=== PATIENT | female | born 1945 | race Caucasian/White ===

== ENCOUNTER 2017-07-01 03:49 | Inpatient (IN) ==
[2017-06-24 08:12] LABS: URINE MICRO REVIEW NEEDED? NO; URINE SOURCE CLEAN CATCH
[2017-06-24 08:12] LABS: MANUAL DIFF NEEDED? NO
[2017-06-24 08:19] LABS: BASO% 0.4 % (0.0-0.8); EOS# 0.39 X1000 (0.0-0.7); HEMATOCRIT 40.9 % (37.0-47.0); HEMOGLOBIN 13.5 g/dL (12.0-16.0); LYMPH# 2.08 X1000 (1.2-3.4); LYMPH% 26.8 % (20.5-51.1); MCH 30.7 PG (27-31); MONO# 1.09 X1000 (0.11-0.59); MPV 10.8 FL (7.4-10.4); NEUT% 53.8 % (42.2-75.2); PLT 248 X1000 (130-400)
[2017-06-24 08:20] LABS: BILIRUBIN URINE NEGATIVE (NEGATIVE); BLOOD URINE NEGATIVE (NEGATIVE); COLOR YELLOW; GLUCOSE URINE NEGATIVE (NEGATIVE); LEUKOCYTES URINE LARGE (NEGATIVE); NITRITE URINE NEGATIVE (NEGATIVE); PH URINE 5.5; PROTEIN URINE TRACE mg/dL (NEGATIVE); SP GRAVITY URINE 1.022; TURBIDITY URINE CLEAR (CLEAR); UR EPITHELIAL CELLS <10 /HPF (<10); URINE BACTERIA NEGATIVE /HPF; URINE RBC <10 /HPF (<10); UROBILINOGEN URINE NORMAL (NORMAL)
[2017-06-24 08:31] LABS: INR 0.96; PROTIME 10.1 Seconds (9.2-11.7); PTT 26.8 Seconds (22.0-36.0)
[2017-06-24 09:02] LABS: AGAP 11; BUN 22 mg/dL (8-22); CALCIUM 9.9 mg/dL (8.8-10.2); CHLORIDE 101 mmol/L (98-107); COSMO 282; POTASSIUM 4.5 mmol/L (3.5-5.1); SODIUM 140 mmol/L (136-145); TCO2 28 mmol/L (25-35)
--- NOTE | 2017-06-24 10:24 | EKG Report ---
Test Performed on : 06/24/2017 08:16:47 AM Test Reason : JOINT CAMP Blood Pressure : / mmHG Vent. Rate : 069 BPM Atrial Rate : 069 BPM P-R Int : 098 ms QRS Dur : 080 ms QT Int : 392 ms P-R-T Axes : 058 -11 059 degrees QTc Int : 420 ms Sinus rhythm. with short LA Low voltage QRS Cannot rule out Anterior infarct (cited on or before 14-JAN-2016) Abnormal ECG When compared with ECG of 14-JAN-2016 08:59, No significant change was found Confirmed by Cristofer Ortiz DO ([id number]) on 06/27/2017 3:35:27 PM
[2017-07-01] MEDS ORDERED: REGLAN ONE (05:35)
[2017-07-01] MEDS ORDERED: COLACE ONE (05:35)
[2017-07-01] MEDS ORDERED: PEPCID ONE (05:35)
[2017-07-01] MEDS ORDERED: LR 1,000 ML ONE (05:36)
[2017-07-01] MEDS ORDERED: LYRICA ONE (05:36)
[2017-07-01] MEDS ORDERED: KEFZOL 2 GM/D5W 2 GM/50 ML IVPB ONE ×2 (05:36→23:00)
[2017-07-01] MEDS ORDERED: CELEBREX ONE (05:36)
[2017-07-01] MEDS ORDERED: VERSED ONE (06:01)
[2017-07-01] MEDS ORDERED: FENTANYL ONE (06:01)
[2017-07-01] MEDS ORDERED: DIPRIVAN 1% 500 MG/50 ML BOTTLE ONE (06:20)
[2017-07-01] MEDS ORDERED: DURAMORPH ONE (06:22)
[2017-07-01] MEDS ORDERED: XYLOCAINE-MPF 2% ONE (06:22)
[2017-07-01] MEDS ORDERED: NEO-SYNEPHRINE ONE (06:22)
[2017-07-01] MEDS ORDERED: MARCAINE 0.25% PF ONE (06:23)
[2017-07-01] MEDS ORDERED: VANCOMYCIN ONE (06:23)
[2017-07-01] MEDS ORDERED: EXPAREL 1.3% ONE (06:23)
[2017-07-01] MEDS ORDERED: SODIUM CHLORIDE 0.9% ONE (06:23)
[2017-07-01] MEDS ORDERED: TORADOL ONE (06:23)
[2017-07-01] MEDS ORDERED: NEOSPORIN G.U. IRRIGANT ONE (06:23)
[2017-07-01] MEDS ORDERED: CYKLOKAPRON 1,000 MG/NS 1,000 MG/100 ML IVPB ONE ×2 (06:23→06:24)
[2017-07-01] MEDS ORDERED: SODIUM CHLORIDE 0.9% 10 ML ONE (07:17)
[2017-07-01 07:47] LABS: URINE MICRO REVIEW NEEDED? NO; URINE SOURCE CATH
[2017-07-01 07:54] LABS: BILIRUBIN URINE NEGATIVE (NEGATIVE); BLOOD URINE NEGATIVE (NEGATIVE); COLOR YELLOW; GLUCOSE URINE NEGATIVE (NEGATIVE); LEUKOCYTES URINE NEGATIVE (NEGATIVE); NITRITE URINE NEGATIVE (NEGATIVE); PH URINE 6.5; PROTEIN URINE NEGATIVE (NEGATIVE); SP GRAVITY URINE 1.009; TURBIDITY URINE CLEAR (CLEAR); UROBILINOGEN URINE NORMAL (NORMAL)
[2017-07-01 07:58] LABS: UR EPITHELIAL CELLS <10 /HPF (<10); URINE BACTERIA NEGATIVE /HPF; URINE RBC <10 /HPF (<10); URINE WBC <10 /HPF (<10)
[2017-07-01] MEDS ORDERED: OFIRMEV 1000 MG/ISOTONIC SOLN 1,000 MG/100 ML BOTTLE ONE (08:16)
[2017-07-01] MEDS ORDERED: DECADRON ONE (08:16)
[2017-07-01] MEDS ORDERED: ZOFRAN ONE (08:16)
[2017-07-01] MEDS ORDERED: NS 1,000 ML ONE (08:59)
[2017-07-01] MEDS ORDERED: ZOFRAN PO PRN (09:06)
[2017-07-01] MEDS ORDERED: MORPHINE IV PRN (09:06)
[2017-07-01] MEDS ORDERED: MILK OF MAGNESIA PO PRN (09:07)
[2017-07-01] MEDS ORDERED: ZOFRAN IV PRN (09:07)
--- NOTE | 2017-07-01 09:07 | OPERATIVE NOTE ---
PROCEDURE DATE: 07/01/2017 PREOPERATIVE DIAGNOSIS: Degenerative arthritis of the left knee. POSTOPERATIVE DIAGNOSIS: Degenerative arthritis of the left knee. PROCEDURE PERFORMED: Left total knee arthroplasty with DePuy Attune size 5 posterior stabilized femur, size 4 tibial tray, a 6 mm rotating platform tibial insert, and a 35 mm medialized anatomic patella. SURGEON: Mario Montanez MD. PRESCHOOL PROGRAM DIRECTOR: NOA Souza. SECOND STITCHER OPERATOR: Adan Lainez RN. ANESTHESIA: Spinal. IV FLUIDS: 2400 mL lactated Ringer's. ESTIMATED BLOOD LOSS: 75 mL. TOURNIQUET TIME: 80 minutes at 350 mmHg. COMPLICATIONS: None. INDICATION: The patient is a 72-year-old female with a chronic history of worsening pain and discomfort of the left knee. Continued pain and discomfort despite appropriate nonoperative treatment. X-rays revealed degenerative osteoarthritis. Recommendation to proceed with left total knee arthroplasty was offered. Risks and benefits of surgery were explained, including the risks of anesthesia, , bleeding, infection, failure to relieve pain, postoperative stiffness, nerve injury, blood clots, and other imponderables. All questions were answered. The patient and family wished to proceed with surgery. DETAILS OF OPERATION: The patient was taken to the operating room and placed supine on the operating table. Once adequate anesthesia was obtained, the patient's left lower extremity was subsequently prepped and draped in the usual sterile fashion. Esmarch was used to exsanguinate the lower extremity and tourniquet was inflated to 350 mmHg. A standard anterior incision was made with a skin knife. Medial and lateral skin envelopes were developed. Standard medial parapatellar arthrotomy was then performed. Patella fat pad was excised. Retractors were then placed. Approximately 1 cm anterior to the PCL insertion, starting reamer was passed. Intramedullary guide was then placed with the distal femoral cutting block pinned in position. Distal femoral cut was then performed in a standard fashion. A sizing block was placed and measured size 5. Corresponding pins were placed. A size 5 cutting block was placed in position. Anterior, posterior, and chamfer cuts were then made. Attention was then turned to the proximal tibia where further resection of the ACL and PCL was performed. Using the extramedullary guide, the proximal tibia cutting block was pinned in position. Had good alignment confirmed with the alignment kecia. The proximal tibia then resected. Medial and lateral menisci were excised. A curved osteotome was used to remove the posterior osteophytes off the distal femur. A spacer block was placed and had good soft tissue balance in both flexion and extension. Attention was turned back to the proximal tibia where a size 4 tibial tray appeared to be the correct size. It was pinned in position. This was followed a central reamer and a fin punch. A box cutting guide was then placed on the distal femur. A box cut was then performed. The trial femoral component was then placed. The 2 lug holes were drilled. A trial tibial insert was placed and had good soft tissue balancing. The patella was everted and resected in a standard fashion. A size 35 appeared to be the correct size. Corresponding holes were drilled. A size 35 patella component was then placed and had good patellofemoral tracking. The components were then removed. Copious irrigation was then performed with antibiotic pulsatile lavage while vancomycin was mixed with cement on the back table. Sequential cementing was then performed. The femoral component was then placed and excess cement was removed with a [place], followed by the trial tibial insert placed in full extension and axial loading was maintained while cement cured. The patella was cemented in a standard fashion. Patella clamp was placed. While cement was curing, Exparel was placed in the deep soft tissue as well as subcutaneous tissue. After the cement had cured, peripheral cement was removed with a small osteotome. A 6 mm tibial insert appeared to be the correct size. Trial tibial insert was then removed. Exparel was placed in the posterior capsule. Copious irrigation was then performed with antibiotic pulsatile lavage. The 6 mm rotating platform tibial insert was then placed. Had good soft tissue balancing and good patellofemoral tracking. A 1/8 Hemovac drain was placed and was not sewn in. Copious irrigation was then performed once again with antibiotic pulsatile lavage. Then #1 Vicryl was used to repair the arthrotomy, followed by 2- 0 Vicryl to repair the subcutaneous tissue, and skin reji. Adaptic, sterile 4 x 4s, Webril, cryounit, and an Danyel wrap were applied to the left lower extremity. Patient tolerated the procedure well with no complications and transferred to the recovery room in stable condition. cc: Mario Montanez MD
--- NOTE | 2017-07-01 09:14 | Diag Imaging Result Doc PS360 ---
EXAM: KNEE 1-2 VIEWS-LEFT HISTORY: post op TKA TECHNIQUE: Two views COMPARISON: None. FINDINGS: There has been recent orthopedic replacement of the left knee. There are anterior skin reji and there is a superior surgical drain. No fracture. No dislocation. IMPRESSION: Good alignment to the femoral and tibial components following orthopedic replacement of the left knee. Electronically signed by Robert Waite 07/01/2017 9:12 AM
[2017-07-01] MEDS: COZAAR PO SCH (10:53)
[2017-07-01] MEDS: PEPCID PO SCH (10:53)
[2017-07-01] MEDS: PATIENT'S OWN MED PO SCH (10:54)
[2017-07-01] MEDS: TYLENOL PO SCH ×2 (13:04→20:00)
[2017-07-01] MEDS: NS 1,000 ML IV SCH ×2 (13:05→20:01)
[2017-07-01] MEDS ORDERED: KEFZOL 1 GM/D5W 1 GM/50 ML IVPB IV SCH (15:00)
[2017-07-01] MEDS ORDERED: KEFZOL 1 GM/D5W 1 GM/50 ML IVPB IV ONE (15:30)
[2017-07-01] MEDS: PERIDEX MT SCH (20:00)
[2017-07-01] MEDS: COLACE PO SCH (20:01)
[2017-07-01] MEDS: OXY IR PO PRN (22:54)
[2017-07-01] MEDS ORDERED: KEFZOL 2 GM/D5W 2 GM/50 ML IVPB IV ONE (23:00)
[2017-07-01] MEDS ORDERED: KEFZOL IM ONE (23:15)
[2017-07-01] MEDS ORDERED: STERILE WATER INJ. INJ ONE (23:30)
[2017-07-02 05:58] LABS: HEMATOCRIT 33.6 % (37.0-47.0); HEMOGLOBIN 10.9 g/dL (12.0-16.0)
[2017-07-02] MEDS ORDERED: XARELTO PO SCH (06:00)
[2017-07-02] MEDS: OXY IR PO PRN ×3 (06:03→13:25)
[2017-07-02] MEDS: TYLENOL PO SCH ×3 (06:06→13:25)
[2017-07-02 06:12] LABS: AGAP 9; BUN 16 mg/dL (8-22); CALCIUM 8.8 mg/dL (8.8-10.2); CHLORIDE 105 mmol/L (98-107); COSMO 279; SODIUM 139 mmol/L (136-145); TCO2 25 mmol/L (25-35)
--- NOTE | 2017-07-02 06:49 | PROGRESS NOTE ---
DATE: 07/02/2017 SUBJECTIVE: The patient is a pleasant 72-year-old female who is 1 day status post left total knee arthroplasty. The patient is resting comfortably and has no complaints. She was able to ambulate with physical therapy yesterday. PHYSICAL EXAMINATION: The patient's left lower extremity dressing is intact. Her calf is soft. She is neurovascularly intact distally and has active dorsiflexion and plantar flexion. Her hemoglobin is 10.9, hematocrit is 33.6. IMPRESSION: Postop day #1 status post left total knee arthroplasty. PLAN: At this point, I discussed treatment options with the patient. At this time, we will change her dressing, discontinue her drain and Pastor. We will also Hep-Lock her IV. We will plan on discharging home after physical therapy. We will arrange for home physical therapy. Patient will follow up in 12-14 days. cc: Mario Montanez MD MTDD
[2017-07-02 08:04] VITALS: BP 105/46
[2017-07-02] MEDS: COZAAR PO SCH (09:07)
[2017-07-02] MEDS: PEPCID PO SCH (09:08)
[2017-07-02] MEDS: COLACE PO SCH (09:08)
[2017-07-02] MEDS: PERIDEX MT SCH (09:08)
[2017-07-02] MEDS: PATIENT'S OWN MED PO SCH (09:15)
== END 2017-07-02 14:19 | disposition home health service (06) ==
LOC: SURHOLD 03:49 → 4N 07:19
PROVIDERS: ADMIT Orthopaedic Surgery Adult Reconstructive Orthopaedic Surgery; ATTEND Orthopaedic Surgery Adult Reconstructive Orthopaedic Surgery